=== PATIENT | male | born 2000 | race Caucasian/White ===

== ENCOUNTER 2019-04-30 12:43 | Emergency (ER) | payer OTHER ==
[~2019-04-30] VITALS: Ht 170.2 cm; Wt 68.0 kg
== END 2019-04-30 15:10 | disposition home or self-care (01) ==
LOC: ER 12:43
DX: S83.92XA Sprain of unspecified site of left knee, initial encounter (principal); X50.9XXA Other and unspecified overexertion or strenuous movements or postures, initial encounter
CPT/HCPCS: 73562-LT; 99283-25

== ENCOUNTER 2019-05-28 12:55 | Emergency (ER) | payer OTHER ==
[~2019-05-28] VITALS: Ht 170.2 cm; Wt 68.0 kg
== END 2019-05-28 13:56 | disposition home or self-care (01) ==
LOC: ER 12:55
DX: S63.501A Unspecified sprain of right wrist, initial encounter (principal); F17.220 Nicotine dependence, chewing tobacco, uncomplicated; F17.200 Nicotine dependence, unspecified, uncomplicated; W26.8XXA Contact with other sharp object(s), not elsewhere classified, initial encounter
CPT/HCPCS: 29125; 73110; 99283-25